=== PATIENT | female | born 1960 | race Caucasian/White ===

== ENCOUNTER → 2019-09-26 | Outpatient (CLI) | payer OTHER ==
[2015-09-07 18:05] VITALS: BP 163/90
[~2019-09-26] MED LIST: BUPR300T92 PO; CALC1CAP7 PO; CETI10CA PO; ESTR1TAB4 PO; FLUC150T PO; GABA-586 PO; LEVO50TA PO; MULT-245 PO; OLOP5DRO13 EACHEYE; OMEP20CA16 PO; OXYC1TAB15 PO; VALA10008 PO; VALP250S18 PO
== END | disposition home or self-care (01) ==
LOC: LAB 14:45
PROVIDERS: ATTEND Registered Nurse
DX: Z11.59 Encounter for screening for other viral diseases (principal)
CPT/HCPCS: C9803; U0003

== ENCOUNTER → 2019-09-30 | Day surgery (SDC) | payer OTHER ==
[~2019-09-30] MED LIST changes: +IPRATRPIUM/ALBUTEROL 0.5/2.5MG 3 ML NEBU. NEB PRN; +IV RINGERS SOLUTION,LACTATED 1,000 ML IV SCH; +PROPOFOL 10,000 MCG/ML (20ML) VIAL IV ONE
[2019-09-30 09:38] VITALS: BP 132/80
--- NOTE | 2019-10-01 15:07 | PATHOLOGY ---
[facility] Accession Number: [id number] . 01 Material submitted: . PART A: colon - TRANSVERSE POLYP. Modifiers: transverse PART B: colon - ASCENDING COLON POLYP. Modifiers: ascending PART C: colon - DESCENDING POLYP. Modifiers: descending . 02 Diagnosis: A. Colon biopsies, transverse colon polyps: - Tubular adenomas. . B. Colon biopsy, ascending colon polyp: - Hyperplastic polyp with coagulation artifact. . C. Colon biopsy, descending colon polyp: - Tubular adenoma. (JP:[facility] 10/01/2019) [facility] 10/01/2019 1244 Local . 02 Comment: There is no high-grade dysplasia or evidence of malignancy. (JP:[facility] 10/01/2019) . 02 Electronically signed: . Arya Gibson MD, Pathologist NPI- [id number] . 01 Gross description: . A. The specimen is received in formalin labeled "Lynchmashburn, Valentina, transverse polyp" and consists of multiple fragments of arvizu tissue measuring 1.3 x 0.5 x 0.2 cm in aggregate which are entirely submitted in A1. . B. The specimen is received in formalin labeled "Lynchmashburn, Valentina, ascending colon polyp" and consists of multiple fragments of arvizu tissue admixed with possible vegetative material measuring 0.6 x 0.3 x 0.2 cm in aggregate which are entirely submitted in B1. . C. The specimen is received in formalin labeled "Lynchmashburn, Valentina, descending polyp" and consists of a fragment of arvizu tissue measuring 0.4 x 0.3 x 0.2 cm which is entirely submitted in C1. (ROSI; 09/30/2019) JFQ/JFCarlos 09/30/2019 1923 Local . 02 Pathologist provided ICD-10: D12.3, K63.5, D12.4 . 02 CPT . 736237, 447117, 399113 Specimen Comment: A courtesy copy of this report has been sent to [phone], [phone] Specimen Comment: [id number] Specimen Comment: Report sent to / DR HURLEY Performed at: 01 [facility] [address], [place] [id number] MD Zeeshan Corona MD Phone: [phone] Performed at: 02 [facility] [address] [place], [place] [id number] MD Arya Gibson MD Phone: [phone]
== END ==
LOC: SURG 07:24 → MERGE 07:24
PROVIDERS: ATTEND Emergency Medicine
DX: K92.1 Melena (principal); D12.3 Benign neoplasm of transverse colon; D12.4 Benign neoplasm of descending colon; K57.30 Diverticulosis of large intestine without perforation or abscess without bleeding; K44.9 Diaphragmatic hernia without obstruction or gangrene; I10 Essential (primary) hypertension; Z96.651 Presence of right artificial knee joint
CPT/HCPCS: 45380; 45385; 88305; J2704